=== PATIENT | female | born 1985 | race Native Hawaiian/Other Pacific Islander ===

== ENCOUNTER 2018-10-12 20:44 | Emergency (ER) | payer SELFPAY ==
--- NOTE | 2018-10-12 21:04 | Emergency Department Report ---
Blank Doc - Documentation Documentation: This is a 33-year-old female that presents with sore throat x3 days. Denies any hoariness or difficulty breathing. Denies any other complaints. This initial assessment diagnostic orders/clinical plan/treatment(s) is/are subject to change based on patient's health status, clinical progression and re- assessment by fellow clinical providers in the ED. Further treatment and workup at subsequent clinical providers discretion. Patient/guardians urged not to elope from ED s their condition may be serious if not clinically assessed and managed. Initial orders include: 1-Patient sent to [facility] for further evaluation and treatment. 2- strep swab
[2018-10-12] MEDS ORDERED: IBUPROFEN PO ONE (23:00)
[2018-10-12] MEDS ORDERED: ATARAX PO ONE (23:00)
--- NOTE | 2018-10-12 23:05 | Emergency Department Report ---
ED ENT HPI - General Chief complaint: Sore Throat Stated complaint: THROAT PAIN/EMESIS Time Seen by Provider: 10/12/18 20:57 Source: patient Mode of arrival: Ambulatory Limitations: No Limitations - History of Present Illness Initial comments: 33-year-old female comes in complaining of sore throat 3-4 days. Patient states that she feels like something is there in her throat. Patient denies any fever or denies any trouble swallowing trouble breathing drinking well and eating well. Patient reports that she went to her doctor 2 days ago an d they put her on liquid loratadine. MD complaint: sore throat -: days(s) (3-4) Location: throat Severity: severe Severity scale (0 -10): 8 Consistency: constant Improves with: none Worsens with: none Associated Symptoms: sore throat. denies: fever, pain with swallowing - Related Data Previous Rx's Medication Instructions Recorded Last Taken Type Acetamin/Codeine 120-12Mg/5 ml 5 ml PO TID PRN #30 ml 08/31/15 Unknown Rx [Tylenol/Codeine] Cephalexin [Keflex Oral Liq 250 500 mg PO Q8HR #300 ml 08/31/15 Unknown Rx mg/5 ML] Ondansetron [Zofran Odt] 4 mg PO Q8HR PRN #10 tab.rapdis 08/31/15 Unknown Rx Ibuprofen [Motrin 600 MG tab] 600 mg PO Q8H PRN #15 tablet 10/13/18 Unknown Rx hydrOXYzine HCL [Atarax] 25 mg PO Q6HR PRN #20 tablet 10/13/18 Unknown Rx Allergies Allergy/AdvReac Type Severity Reaction Status Date / Time paroxetine HCl [From Paxil] Allergy Unknown Verified 08/30/15 18:29 ED Dental HPI - General Chief complaint: Sore Throat Stated complaint: THROAT PAIN/EMESIS Time Seen by Provider: 10/12/18 20:57 Source: patient Mode of arrival: Ambulatory Limitations: No Limitations - Related Data Previous Rx's Medication Instructions Recorded Last Taken Type Acetamin/Codeine 120-12Mg/5 ml 5 ml PO TID PRN #30 ml 08/31/15 Unknown Rx [Tylenol/Codeine] Cephalexin [Keflex Oral Liq 250 500 mg PO Q8HR #300 ml 08/31/15 Unknown Rx mg/5 ML] Ondansetron [Zofran Odt] 4 mg PO Q8HR PRN #10 tab.rapdis 08/31/15 Unknown Rx Ibuprofen [Motrin 600 MG tab] 600 mg PO Q8H PRN #15 tablet 10/13/18 Unknown Rx hydrOXYzine HCL [Atarax] 25 mg PO Q6HR PRN #20 tablet 10/13/18 Unknown Rx Allergies Allergy/AdvReac Type Severity Reaction Status Date / Time paroxetine HCl [From Paxil] Allergy Unknown Verified 08/30/15 18:29 ED Review of Systems ROS: Stated complaint: THROAT PAIN/EMESIS Other details as noted in HPI Comment: All other systems reviewed and negative ENT: throat pain Psychiatric: anxiety ED Past Medical Hx - Past Medical History Hx Psychiatric Treatment: Yes (Anxiety) - Surgical History Past Surgical History?: No - Social History Smoking Status: Never Smoker Substance Use Type: None - Medications Home Medications: Home Medications Medication Instructions Recorded Confirmed Last Taken Type Acetamin/Codeine 120-12Mg/5 ml 5 ml PO TID PRN #30 ml 08/31/15 Unknown Rx [Tylenol/Codeine] Cephalexin [Keflex Oral Liq 250 500 mg PO Q8HR #300 ml 08/31/15 Unknown Rx mg/5 ML] Ondansetron [Zofran Odt] 4 mg PO Q8HR PRN #10 tab.rapdis 08/31/15 Unknown Rx Ibuprofen [Motrin 600 MG tab] 600 mg PO Q8H PRN #15 tablet 10/13/18 Unknown Rx hydrOXYzine HCL [Atarax] 25 mg PO Q6HR PRN #20 tablet 10/13/18 Unknown Rx ED Physical Exam - General Limitations: No Limitations General appearance: alert, in no apparent distress - Head Head exam: Present: atraumatic, normocephalic - Eye Eye exam: Present: EOMI - ENT ENT exam: Present: normal orophraynx, mucous membranes moist - Neck Neck exam: Present: tenderness, full ROM. Absent: lymphadenopathy, thyromegaly - Respiratory Respiratory exam: Present: normal lung sounds bilaterally. Absent: respiratory distress - Cardiovascular Cardiovascular Exam: Present: tachycardia - Neurological Exam Neurological exam: Present: alert, oriented X3 - Psychiatric Psychiatric exam: Present: anxious - Skin Skin exam: Present: warm, intact, normal color, diaphoretic. Absent: rash ED Course Vital Signs 10/12/18 21:01 Temperature 97.5 F L Pulse Rate 106 H Respiratory 18 Rate Blood Pressure 144/87 O2 Sat by Pulse 98 Oximetry ED Medical Decision Making - Medical Decision Making Patient has been evaluated by this provider in fast track. Patient is tachycardic and anxious diaphoretic and jittery we'll check a TSH and soft tissue neck x-ray Patient will be given Atarax 25 mg by mouth and ibuprofen 600 mg by mouth Critical care attestation.: If time is entered above; I have spent that time in minutes in the direct care of this critically ill patient, excluding procedure time. ED Disposition Clinical Impression: Sore throat, Anxiety Disposition: - TO HOME OR SELFCARE Is pt being admited?: No Does the pt Need Aspirin: No Condition: Stable Instructions: Tonsillitis (ED), Anxiety (ED) Additional Instructions: Please take medication as needed. Your x-ray was negative for any abnormalities of the throat. He appears symptoms persist please follow up with the ear nose and throat doctor. I have listed one below for your convenience. Por favor, tome los medicamentos segn sea necesario. Escalona radiografa fue negativa para cualquier anomala de la garganta. Parece que los sntomas persisten, por favor paula un seguimiento con el mdico de la nariz y la garganta del odo. He enumerado claudia a continuacin para escalona conveniencia Prescriptions: hydrOXYzine HCL [Atarax] 25 mg PO Q6HR PRN #20 tablet PRN Reason: Anxiety Ibuprofen [Motrin 600 MG tab] 600 mg PO Q8H PRN #15 tablet PRN Reason: Pain Referrals: [facility] MD RAQUEL [Primary Care Provider] - 3-5 Days Forms: Work/School Release Form(ED)
--- NOTE | 2018-10-12 23:49 | XRay Report ---
FINAL REPORT PROCEDURE: XR NECK SOFT TISSUE TECHNIQUE: Soft tissue neck radiographs, 2 views, including AP and lateral. CPT 46095 HISTORY: feels like something is in her throat COMPARISON: No prior studies are available for comparison. FINDINGS: Bone mineralization: Normal. Alignment: Normal. Soft tissues: Epiglottis and hypopharyngeal soft tissues normal. Foreign bodies: None. IMPRESSION: Normal Examination.
[2018-10-13 02:19] VITALS: BP 122/81
== END 2018-10-13 02:21 | disposition home or self-care (01) ==
LOC: ED 20:44
DX: J02.9 Acute pharyngitis, unspecified (principal); F41.9 Anxiety disorder, unspecified
CPT/HCPCS: 36415; 70360; 84443; 87116; 87430

== ENCOUNTER 2020-12-11 11:57 | Emergency (ER) | payer SELFPAY ==
[2020-12-11 12:14] VITALS: BP 139/68
--- NOTE | 2020-12-11 12:21 | Emergency Department Report ---
ED HPI - General Chief complaint: Vaginal Bleeding Stated complaint: VAGINAL BLEEDING Time Seen by Provider: 12/11/20 12:18 Source: patient Mode of arrival: Ambulatory Limitations: No Limitations - History of Present Illness Initial comments: pt is a 35 yo female who presents to the ED with c/o vaginal spotting. she states she has had spotting throughout her but it became brighter red today and she had one small blood clot when she wiped. she denies any heavy bleeding. she states two days ago she was having lower abdominal cramping and lower back pain which she states has improved. she states she goes to [facility] and last saw them 4 days ago and was advised she is 5 weeks . she denies any fever, diarrhea, vomiting, urinary symptoms, abnormal vaginal discharge, itching, burning. pmhx anxiety. allergy: paroxetine. st . LNMP October. - Related Data Previous Rx's Medication Instructions Recorded Last Taken Type Acetamin/Codeine 120-12Mg/5 ml 5 ml PO TID PRN #30 ml 08/31/15 Unknown Rx [Tylenol/Codeine] Cephalexin [Keflex Oral Liq 250 500 mg PO Q8HR #300 ml 08/31/15 Unknown Rx mg/5 ML] Ondansetron [Zofran Odt] 4 mg PO Q8HR PRN #10 tab.rapdis 08/31/15 Unknown Rx Ibuprofen [Motrin 600 MG tab] 600 mg PO Q8H PRN #15 tablet 10/13/18 Unknown Rx hydrOXYzine HCL [Atarax] 25 mg PO Q6HR PRN #20 tablet 10/13/18 Unknown Rx Allergies Allergy/AdvReac Type Severity Reaction Status Date / Time paroxetine HCl [From Paxil] Allergy Unknown Verified 08/30/15 18:29 ED Review of Systems ROS: Stated complaint: VAGINAL BLEEDING Other details as noted in HPI Comment: All other systems reviewed and negative ED Past Medical Hx - Past Medical History Hx Psychiatric Treatment: Yes (Anxiety) - Social History Smoking Status: Never Smoker Substance Use Type: None - Medications Home Medications: Home Medications Medication Instructions Recorded Confirmed Last Taken Type Acetamin/Codeine 120-12Mg/5 ml 5 ml PO TID PRN #30 ml 08/31/15 Unknown Rx [Tylenol/Codeine] Cephalexin [Keflex Oral Liq 250 500 mg PO Q8HR #300 ml 08/31/15 Unknown Rx mg/5 ML] Ondansetron [Zofran Odt] 4 mg PO Q8HR PRN #10 tab.rapdis 08/31/15 Unknown Rx Ibuprofen [Motrin 600 MG tab] 600 mg PO Q8H PRN #15 tablet 10/13/18 Unknown Rx hydrOXYzine HCL [Atarax] 25 mg PO Q6HR PRN #20 tablet 10/13/18 Unknown Rx ED Physical Exam - General Limitations: No Limitations General appearance: alert, in no apparent distress - Head Head exam: Present: atraumatic, normocephalic - Eye Eye exam: Present: normal appearance - ENT ENT exam: Present: mucous membranes moist - Respiratory Respiratory exam: Present: normal lung sounds bilaterally. Absent: respiratory distress, wheezes, rales, rhonchi, stridor, chest wall tenderness, accessory muscle use, decreased breath sounds, prolonged expiratory - Cardiovascular Cardiovascular Exam: Present: regular rate, normal rhythm, normal heart sounds. Absent: systolic murmur, diastolic murmur, rubs, gallop - GI/Abdominal GI/Abdominal exam: Present: soft, normal bowel sounds. Absent: distended, tenderness, guarding, rebound, rigid - Neurological Exam Neurological exam: Present: alert, oriented X3 - Psychiatric Psychiatric exam: Present: normal affect, normal mood - Skin Skin exam: Present: warm, dry ED Course Vital Signs 12/11/20 12/11/20 12:11 12:13 Temperature 98 F Pulse Rate 108 H Respiratory 20 Rate Blood Pressure 139/68 O2 Sat by Pulse 96 Oximetry ED Medical Decision Making - Lab Data Result diagrams: 12/11/20 12:29 12/11/20 12:29 Lab Results 12/11/20 12/11/20 12/11/20 Range/Units 12:29 12:29 12:29 WBC 8.0 (4.5-11.0) K/mm3 RBC 4.25 (3.65-5.03) M/mm3 Hgb 13.3 (10.1-14.3) gm/dl Hct 38.8 (30.3-42.9) % MCV 91 (79-97) fl MCH 31 (28-32) pg MCHC 34 (30-34) % RDW 13.1 L (13.2-15.2) % Plt Count 226 (140-440) K/mm3 Lymph % (Auto) 22.2 (13.4-35.0) % Winn % (Auto) 5.7 (0.0-7.3) % Eos % (Auto) 0.4 (0.0-4.3) % Baso % (Auto) 0.6 (0.0-1.8) % Lymph # (Auto) 1.8 (1.2-5.4) K/mm3 Winn # (Auto) 0.5 (0.0-0.8) K/mm3 Eos # (Auto) 0.0 (0.0-0.4) K/mm3 Baso # (Auto) 0.0 (0.0-0.1) K/mm3 Seg Neutrophils % 71.1 H (40.0-70.0) % Seg Neutrophils # 5.7 (1.8-7.7) K/mm3 Sodium 143 (137-145) mmol/L Potassium 3.5 L (3.6-5.0) mmol/L Chloride 105.0 (98-107) mmol/L Carbon Dioxide 23 (22-30) mmol/L Anion Gap 19 mmol/L BUN 10 (7-17) mg/dL Creatinine 0.6 (0.6-1.2) mg/dL Estimated GFR > 60 ml/min BUN/Creatinine Ratio 17 % Glucose 127 H (65-100) mg/dL Calcium 9.5 (8.4-10.2) mg/dL Total Bilirubin 0.30 (0.1-1.2) mg/dL AST 16 (5-40) units/L ALT 13 (7-56) units/L Alkaline Phosphatase 79 (35-129) units/L Total Protein 7.7 (6.3-8.2) g/dL Albumin 4.3 (3.9-5) g/dL Albumin/Globulin Ratio 1.3 % HCG, Quant 649.7 H (0-4) mIU/mL Urine Color (Yellow) Urine Turbidity (Clear) Urine pH (5.0-7.0) Ur Specific [place] (1.003-1.030) Urine Protein (Negative) mg/dL Urine Glucose (UA) (Negative) mg/dL Urine Ketones (Negative) mg/dL Urine Blood (Negative) Urine Nitrite (Negative) Urine Bilirubin (Negative) Urine Urobilinogen (<2.0) mg/dL Ur Leukocyte Esterase (Negative) Urine WBC (Auto) (0.0-6.0) /HPF Urine RBC (Auto) (0.0-6.0) /HPF U Epithel Cells (Auto) (0-13.0) /HPF Urine Mucus /HPF Blood Type 12/11/20 12/11/20 Range/Units 12:29 Unknown WBC (4.5-11.0) K/mm3 RBC (3.65-5.03) M/mm3 Hgb (10.1-14.3) gm/dl Hct (30.3-42.9) % MCV (79-97) fl MCH (28-32) pg MCHC (30-34) % RDW (13.2-15.2) % Plt Count (140-440) K/mm3 Lymph % (Auto) (13.4-35.0) % Winn % (Auto) (0.0-7.3) % Eos % (Auto) (0.0-4.3) % Baso % (Auto) (0.0-1.8) % Lymph # (Auto) (1.2-5.4) K/mm3 Winn # (Auto) (0.0-0.8) K/mm3 Eos # (Auto) (0.0-0.4) K/mm3 Baso # (Auto) (0.0-0.1) K/mm3 Seg Neutrophils % (40.0-70.0) % Seg Neutrophils # (1.8-7.7) K/mm3 Sodium (137-145) mmol/L Potassium (3.6-5.0) mmol/L Chloride (98-107) mmol/L Carbon Dioxide (22-30) mmol/L Anion Gap mmol/L BUN (7-17) mg/dL Creatinine (0.6-1.2) mg/dL Estimated GFR ml/min BUN/Creatinine Ratio % Glucose (65-100) mg/dL Calcium (8.4-10.2) mg/dL Total Bilirubin (0.1-1.2) mg/dL AST (5-40) units/L ALT (7-56) units/L Alkaline Phosphatase (35-129) units/L Total Protein (6.3-8.2) g/dL Albumin (3.9-5) g/dL Albumin/Globulin Ratio % HCG, Quant (0-4) mIU/mL Urine Color Yellow (Yellow) Urine Turbidity Clear (Clear) Urine pH 5.0 (5.0-7.0) Ur Specific [place] 1.019 (1.003-1.030) Urine Protein <15 mg/dl (Negative) mg/dL Urine Glucose (UA) Neg (Negative) mg/dL Urine Ketones Neg (Negative) mg/dL Urine Blood Sm (Negative) Urine Nitrite Neg (Negative) Urine Bilirubin Neg (Negative) Urine Urobilinogen < 2.0 (<2.0) mg/dL Ur Leukocyte Esterase Neg (Negative) Urine WBC (Auto) 3.0 (0.0-6.0) /HPF Urine RBC (Auto) 3.0 (0.0-6.0) /HPF U Epithel Cells (Auto) 1.0 (0-13.0) /HPF Urine Mucus 1+ /HPF Blood Type A POSITIVE - Radiology Data Radiology results: report reviewed Ordering Physician: SAGRARIO HOFF Date of Service: 12/11/20 Procedure(s): US OB <= 14 weeks fetus Accession Number(s): [id number] cc: SAGRARIO HOFF ULTRASOUND OBSTETRIC INDICATION / CLINICAL INFORMATION: , spotting and cramping. Clinical Gestational Age (GA): 5.6 weeks.days TECHNIQUE: Transabdominal and Transvaginal. COMPARISON: None available. FINDINGS: GESTATIONAL SAC: Suspected gestational sac within the endometrial canal lower uterine segment measures 0.6 cm (5 weeks 2 days by size) YOLK SAC: No definite yolk sac noted. EMBRYO/FETUS: No embryo or appreciable heart rate. ADNEXA: Simple right ovarian cyst measures 1 cm and is likely physiologic. Left minimally complex ovarian cyst measures 1.6 cm, likely corpus luteal cyst. FREE FLUID: None. ADDITIONAL FINDINGS: None. IMPRESSION: 1. Suspected intrauterine gestational sac within the lower uterine segment. No definite evidence of embryo or heart tones, which may be secondary to early dates (5 weeks 2 days by suspected gestational sac size). Clinical and ultrasound follow-up is recommended. Signer Name: Harshal Walker MD Signed: 12/11/2020 2:27 PM Workstation Name: [id number] Transcribed By: Dictated By: HARSHAL WALKER Electronically Authenticated By: HARSHAL WALKER Signed Date/Time: 12/11/20 1427 DD/ 1415 TD/TT: - Medical Decision Making pt is a 35 yo female who presents to the ED with c/o vaginal spotting. she states she has had spotting throughout her but it became brighter red today and she had one small blood clot when she wiped. she denies any heavy bleeding. she states two days ago she was having lower abdominal cramping and lower back pain which she states has improved. she states she goes to [facility] and last saw them 4 days ago and was advised she is 5 weeks . she denies any fever, diarrhea, vomiting, urinary symptoms, abnormal vaginal discharge, itching, burning. pmhx anxiety. allergy: paroxetine. st . LNMP October. Vitals are stable, she denies any significant pain, she states that she is just nervous about having a miscarriage. No abdominal tenderness on exam, no guarding, no rebound, no rigidity, normal bowel sounds, no peritoneal signs. Labs are stable. UA is within normal limits. hCG quant 649. OB ultrasound: 1. Suspected intrauterine gestational sac within the lower uterine segment. No definite evidence ofembryo or heart tones, which may be secondary to early dates (5 weeks 2 days by suspected gestational sac size). Clinical and ultrasound follow-up is recommended. could represent early IUP versus miscarriage. Discussed all results with patient. Discussed the importance of [employer] follow-up. Discussed the importance of having a repeat hCG quant. Advised patient please increase your fluid intake. may take tylenol as needed for cramping. take a vitamin over the counter. practice pelvic rest. follow up with your COMPUT[employer]ANGUAGE [employer]ER in 2 days. you need to have a repeat hcg quant in 2 days. today 12/11/2020 your hcg quant is 649. return to the emergency room for any new or worsening symptoms. Critical care attestation.: If time is entered above; I have spent that time in minutes in the direct care of this critically ill patient, excluding procedure time. ED Disposition Clinical Impression: Threatened miscarriage Disposition: DC- TO HOME OR SELFCARE Is pt being admited?: No Does the pt Need Aspirin: No Condition: Stable Instructions: Threatened Miscarriage, Vaginal Bleeding During , First Trimester Additional Instructions: please increase your fluid intake. may take tylenol as needed for cramping. take a vitamin over the counter. practice pelvic rest. follow up with your COM[employer]ER in 2 days. you need to have a repeat hcg quant in 2 days. today 12/11/2020 your hcg quant is 649. return to the emergency room for any new or worsening symptoms. Referrals: your, motorman/woman [Other] - 2-3 Days PRIMARY CARE, [Primary Care Provider] - 2-3 Days Time of Disposition: 15:02 Print Language: MALAY
[2020-12-11 12:48] LABS: Basophils % (Auto) 0.6 % (0.0-1.8); Eosinophils % (Auto) 0.4 % (0.0-4.3); Hematocrit 38.8 % (30.3-42.9); Hemoglobin 13.3 gm/dl (10.1-14.3); Lymphocytes # (Auto) 1.8 K/mm3 (1.2-5.4); Lymphocytes % (Auto) 22.2 % (13.4-35.0); Mean Corpuscular HGB Conc 34 % (30-34); Mean Corpuscular Volume 91 fl (79-97); Monocytes # (Auto) 0.5 K/mm3 (0.0-0.8); Monocytes % (Auto) 5.7 % (0.0-7.3); Platelet Count 226 K/mm3 (140-440); Red Blood Count 4.25 M/mm3 (3.65-5.03); Red Cell Distribution Width 13.1 % (13.2-15.2)
[2020-12-11 13:10] LABS: Bilirubin,Urine NEG (Negative); Blood,Urine SM (Negative); Color,Urine Yellow (Yellow); Mucus,Urine 1+ /HPF; Protein,Urine <15 mg/dL mg/dL (Negative); Urobilinogen,Urine < 2.0 mg/dL (<2.0)
[2020-12-11 13:46] LABS: Alanine Aminotransferase 13 units/L (7-56); Albumin 4.3 g/dL (3.9-5); Blood Urea Nitrogen 10 mg/dL (7-17); Calcium 9.5 mg/dL (8.4-10.2); Hemolysis Index 4
[2020-12-11 13:47] LABS: BUN/Creatinine Ratio 17
--- NOTE | 2020-12-11 14:31 | Ultrasound Report ---
ULTRASOUND OBSTETRIC INDICATION / CLINICAL INFORMATION: , spotting and cramping. Clinical Gestational Age (GA): 5.6 weeks.days TECHNIQUE: Transabdominal and Transvaginal. COMPARISON: None available. FINDINGS: GESTATIONAL SAC: Suspected gestational sac within the endometrial canal lower uterine segment measure s 0.6 cm (5 weeks 2 days by size) YOLK SAC: No definite yolk sac noted. EMBRYO/FETUS: No embryo or appreciable heart rate. ADNEXA: Simple right ovarian cyst measures 1 cm and is likely physiologic. Left minimally complex ova roxanna cyst measures 1.6 cm, likely corpus luteal cyst. FREE FLUID: None. ADDITIONAL FINDINGS: None. IMPRESSION: 1. Suspected intrauterine gestational sac within the lower uterine segment. No definite evidence of e mbryo or heart tones, which may be secondary to early dates (5 weeks 2 days by suspected gestat ional sac size). Clinical and ultrasound follow-up is recommended. Signer Name: Sterling Reyes MD Signed: 12/11/2020 2:27 PM Workstation Name: [id number]
--- NOTE | 2020-12-11 14:44 | Ultrasound Report ---
ULTRASOUND OBSTETRIC INDICATION / CLINICAL INFORMATION: , spotting and cramping. Clinical Gestational Age (GA): 5.6 weeks.days TECHNIQUE: Transabdominal and Transvaginal. COMPARISON: None available. FINDINGS: GESTATIONAL SAC: Suspected gestational sac within the endometrial canal lower uterine segment measure s 0.6 cm (5 weeks 2 days by size) YOLK SAC: No definite yolk sac noted. EMBRYO/FETUS: No embryo or appreciable heart rate. ADNEXA: Simple right ovarian cyst measures 1 cm and is likely physiologic. Left minimally complex ova roxanna cyst measures 1.6 cm, likely corpus luteal cyst. FREE FLUID: None. ADDITIONAL FINDINGS: None. IMPRESSION: 1. Suspected intrauterine gestational sac within the lower uterine segment. No definite evidence of e mbryo or heart tones, which may be secondary to early dates (5 weeks 2 days by suspected gestat ional sac size). Clinical and ultrasound follow-up is recommended. Signer Name: Sterling Reyes MD Signed: 12/11/2020 2:39 PM Workstation Name: [id number]
== END 2020-12-11 15:47 | disposition home or self-care (01) ==
LOC: ED 11:57
DX: O20.0 Threatened abortion (principal); F41.9 Anxiety disorder, unspecified; Z79.899 Other long term (current) drug therapy; Z3A.01 Less than 8 weeks gestation of pregnancy
CPT/HCPCS: 36415; 76801; 76817; 80053; 81001; 84702; 85025; 86900; 86901

== ENCOUNTER 2020-12-14 15:14 | Emergency (ER) | payer SELFPAY ==
--- NOTE | 2020-12-14 16:05 | Emergency Department Report ---
ED HPI - General Chief complaint: Vaginal Bleeding Stated complaint: 4 WKS BLEEDING Time Seen by Provider: 12/14/20 16:04 Source: patient Mode of arrival: Ambulatory Limitations: Language Barrier - History of Present Illness Initial comments: 35-year-old female presents with complaints of continued vaginal bleeding and lower abdominal cramping pain since her visit of 12/11/2020 here in the ED. Patient is approximately 5 weeks . She states she did follow- up with her AUXILIARY POWER EQUIPMENT OPERATOR today and had more testing and ultrasound done. Patient states her AUXILIARY POWER EQUIPMENT OPERATOR has not informed her of her any of her results and denies her AUXILIARY POWER EQUIPMENT OPERATOR sending her to the ED. She rates her current pain as a 3/10 in severity. Patient denies any prior medical history. She is G1, . - Related Data Previous Rx's Medication Instructions Recorded Last Taken Type Acetamin/Codeine 120-12Mg/5 ml 5 ml PO TID PRN #30 ml 08/31/15 Unknown Rx [Tylenol/Codeine] Cephalexin [Keflex Oral Liq 250 500 mg PO Q8HR #300 ml 08/31/15 Unknown Rx mg/5 ML] Ondansetron [Zofran Odt] 4 mg PO Q8HR PRN #10 tab.rapdis 08/31/15 Unknown Rx Ibuprofen [Motrin 600 MG tab] 600 mg PO Q8H PRN #15 tablet 10/13/18 Unknown Rx hydrOXYzine HCL [Atarax] 25 mg PO Q6HR PRN #20 tablet 10/13/18 Unknown Rx Allergies Allergy/AdvReac Type Severity Reaction Status Date / Time paroxetine HCl [From Paxil] Allergy Unknown Verified 08/30/15 18:29 Penicillins AdvReac Unknown Verified 12/14/20 16:00 ED Review of Systems ROS: Stated complaint: 4 WKS BLEEDING Other details as noted in HPI Constitutional: denies: chills, fever, malaise Respiratory: denies: shortness of breath Cardiovascular: denies: chest pain Gastrointestinal: abdominal pain. denies: nausea, vomiting Genitourinary: abnormal menses. denies: urgency, dysuria, frequency, hematuria, discharge, dyspareunia Hematological/Lymphatic: denies: easy bleeding, easy bruising, swollen glands ED Past Medical Hx - Past Medical History Hx Psychiatric Treatment: Yes (Anxiety) - Social History Smoking Status: Never Smoker Substance Use Type: None - Medications Home Medications: Home Medications Medication Instructions Recorded Confirmed Last Taken Type Acetamin/Codeine 120-12Mg/5 ml 5 ml PO TID PRN #30 ml 08/31/15 Unknown Rx [Tylenol/Codeine] Cephalexin [Keflex Oral Liq 250 500 mg PO Q8HR #300 ml 08/31/15 Unknown Rx mg/5 ML] Ondansetron [Zofran Odt] 4 mg PO Q8HR PRN #10 tab.rapdis 08/31/15 Unknown Rx Ibuprofen [Motrin 600 MG tab] 600 mg PO Q8H PRN #15 tablet 10/13/18 Unknown Rx hydrOXYzine HCL [Atarax] 25 mg PO Q6HR PRN #20 tablet 10/13/18 Unknown Rx ED Physical Exam - General Limitations: Language Barrier General appearance: alert, in no apparent distress - Head Head exam: Present: atraumatic, normocephalic - Eye Eye exam: Present: normal appearance - Neck Neck exam: Present: normal inspection - Respiratory Respiratory exam: Present: normal lung sounds bilaterally. Absent: respiratory distress - Cardiovascular Cardiovascular Exam: Present: regular rate, normal rhythm - GI/Abdominal GI/Abdominal exam: Present: soft, normal bowel sounds. Absent: distended, tenderness, guarding, rebound, rigid - Neurological Exam Neurological exam: Present: alert, oriented X3, normal gait - Psychiatric Psychiatric exam: Present: normal affect, normal mood - Skin Skin exam: Present: warm, dry, intact, normal color. Absent: rash, cyanosis, diaphoretic, pallor, ecchymosis ED Course Vital Signs 12/14/20 12/14/20 12/14/20 15:59 16:15 19:47 Temperature 98.6 F Pulse Rate 97 H 92 H 90 Respiratory 16 18 Rate Blood Pressure 135/78 Blood Pressure 128/78 [Left] O2 Sat by Pulse 99 100 Oximetry ED Medical Decision Making - Medical Decision Making 35-year-old female presents with complaints of continued vaginal bleeding and lower abdominal cramping pain since her visit of 12/11/2020 here in the ED. Patient is approximately 5 weeks . She states she did follow- up with her AUXILIARY POWER EQUIPMENT OPERATOR today and had more testing and ultrasound done. Patient states her AUXILIARY POWER EQUIPMENT OPERATOR has not informed her of her any of her results and denies her AUXILIARY POWER EQUIPMENT OPERATOR sending her to the ED. She rates her current pain as a 3/10 in severity. Patient denies any prior medical history. She is G1, . Ultrasound from 12/11/2020 showed IUP with gestational sac, 5-week , early gestation. Beta-hCG at the time was approximately 650. Beta-hCG today is in the 400s. Urine is clean. Patient states she has used 2 panty liners today and denies heavy bleeding or dizziness or fatigue. Threatened miscarriage. Recommend patient follows up with her AUXILIARY POWER EQUIPMENT OPERATOR first thing Wednesday morning for repeat beta hCG. Her vitals are normal, she is well-appearing, she is stable for discharge home. Strict return precautions discussed in detail with patient who verbalizes understanding. Critical care attestation.: If time is entered above; I have spent that time in minutes in the direct care of this critically ill patient, excluding procedure time. ED Disposition Clinical Impression: Threatened miscarriage Disposition: DC-01 TO HOME OR SELFCARE Is pt being admited?: No Condition: Stable Instructions: Threatened Miscarriage Additional Instructions: Please follow-up with your AUXILIARY POWER EQUIPMENT OPERATOR within 2 days. If you develop any new or worsening symptoms seek immediate emergency treatment. Referrals: PRIMARY CARE, [Primary Care Provider] - 3-5 Days
[2020-12-14 18:36] LABS: Bacteria,Urine 1+ /HPF (Negative); Bilirubin,Urine NEG (Negative); Blood,Urine LG (Negative); Color,Urine Colorless (Yellow); Protein,Urine <15 mg/dL mg/dL (Negative); Urobilinogen,Urine < 2.0 mg/dL (<2.0); WBC,Urine < 1.0 /HPF (0.0-6.0)
[2020-12-14 19:48] VITALS: BP 128/78
== END 2020-12-14 19:48 | disposition home or self-care (01) ==
LOC: ED 15:14
DX: O20.0 Threatened abortion (principal); O99.341 Other mental disorders complicating pregnancy, first trimester; F41.9 Anxiety disorder, unspecified; Z3A.01 Less than 8 weeks gestation of pregnancy; Z79.899 Other long term (current) drug therapy; Z88.0 Allergy status to penicillin; Z88.8 Allergy status to other drugs, medicaments and biological substances
CPT/HCPCS: 36415; 81001; 84702